=== PATIENT | female | born 1960 | race African-American/Black ===

== ENCOUNTER → 2017-03-12 | Outpatient (CLI) | payer OTHER ==
[~2017-03-12] VITALS: Ht 167.6 cm; Wt 102.1 kg
[~2017-03-12] MED LIST: ALBUTEROL2.5 MG/0.1 IH; ALEVE220 M1 PO; ALLEGRA ALLERGY60 MG PO; BACLOFEN 10MG T10 MG PO; BACTRIM DS TAB1 EACH PO; FLEXERIL PO; HYDROCODONE-AC120 ML PO; HYDROCODONE-AP1 EAC6 PO; MOBIC7.5 MG PO; NEURONTIN300 MG PO; NORCO 5-325 TA1 EACH PO; PERCOCET PO; PREDNISONE 10 M10 M1; PROAIR HFA8.5 GM IH; ULTRAM 50MG TAB50 MG PO
[2017-03-12 13:43] VITALS: BP 114/76
== END | disposition home or self-care (01) ==
LOC: PAIN 10:47
DX: M51.26 Other intervertebral disc displacement, lumbar region (principal); M48.06 Spinal stenosis, lumbar region; M47.817 Spondylosis without myelopathy or radiculopathy, lumbosacral region; G89.29 Other chronic pain; M25.551 Pain in right hip; M25.571 Pain in right ankle and joints of right foot; F17.210 Nicotine dependence, cigarettes, uncomplicated; Z88.8 Allergy status to other drugs, medicaments and biological substances; Z91.040 Latex allergy status

== ENCOUNTER → 2017-12-15 | Outpatient (CLI) | payer OTHER ==
[~2017-12-15] MED LIST changes: +PERCOCET 5-3251 EACH PO
== END ==
LOC: RAD 15:19
DX: Z12.31 Encounter for screening mammogram for malignant neoplasm of breast (principal)

== ENCOUNTER 2018-02-15 11:34 | Emergency (ER) | payer OTHER ==
[~2018-02-15] VITALS: Ht 165.1 cm; Wt 90.7 kg
[~2018-02-15 11:34] MED LIST changes: +CENTRUM SILVER1 EAC4 PO; +VITAMIN C500 M1 PO; +VITAMIN D1000 UNI2 PO
[2018-02-15] MEDS ORDERED: NABUMETONE 750750 M1 PO (11:51)
[2018-02-15] MEDS ORDERED: NORCO 5-325 TA1 EACH PO (12:19)
== END 2018-02-15 12:37 | disposition home or self-care (01) ==
LOC: ER 11:34
DX: G89.29 Other chronic pain (principal); M54.5 Low back pain; M54.6 Pain in thoracic spine; F17.210 Nicotine dependence, cigarettes, uncomplicated; Z88.5 Allergy status to narcotic agent; Z91.040 Latex allergy status